=== PATIENT | male | born 1975 | race Caucasian/White ===

== ENCOUNTER 2017-03-06 14:31 | Emergency (ER) | payer BC ==
[~2017-03-06] VITALS: Ht 188 cm; Wt 90.9 kg
[2017-03-06 14:59] VITALS: BP 145/96; PULSE 98; RESP 18; TEMP 98.4; O2SAT 99
--- NOTE | 2017-03-06 15:46 | RADRPT ---
EXAM DATE/TIME: 03/06/2017 15:27 [place] COMPARISON: No previous studies available for comparison. INDICATIONS : Chest pain. MEDICAL HISTORY : A-fib SURGICAL HISTORY : None. ENCOUNTER: Initial ACUITY: 3 days PAIN SCORE: 10/10 LOCATION: Bilateral chest FINDINGS: PA and lateral views of the chest demonstrate the lungs to be symmetrically aerated without evidence of mass, infiltrate or effusion. The cardiomediastinal contours are unremarkable. Osseous structure s are intact. CONCLUSION: No acute disease. Lamin Valenzuela MD on March 06, 2017 at 15:43 Board Certified Radiologist. This report was verified electronically.
[2017-03-06 16:09] LABS: AUTOMATED NEUTROPHIL # 2.9 TH/MM3 (1.8-7.7); BASOPHIL % 0.6 % (0.0-2.0); EOSINOPHIL # 0.2 TH/MM3 (0-0.4); EOSINOPHIL % 4.3 % (0.0-4.0); HEMATOCRIT 46.6 % (39.0-51.0); HEMOGLOBIN 15.9 GM/DL (13.0-17.0); LYMPH % 32.3 % (9.0-44.0); LYMPHOCYTE # 1.8 TH/MM3 (1.0-4.8); MEAN CELL VOLUME 100.1 FL (80.0-100.0); MEAN CORPUSCULAR HEMOGLOBIN 34.1 PG (27.0-34.0); MEAN CORPUSCULAR HGB CONC 34.1 % (32.0-36.0); MEAN PLATELET VOLUME 7.4 FL (7.0-11.0); MONOCYTE # 0.5 TH/MM3 (0-0.9); NEUT % 52.8 % (16.0-70.0); PLATELET COUNT 277 TH/MM3 (150-450); RED BLOOD COUNT 4.66 MIL/MM3 (4.50-5.90); RED CELL DISTRIBUTION WIDTH 13.3 % (11.6-17.2); WHITE BLOOD COUNT 5.5 TH/MM3 (4.0-11.0)
[2017-03-06 16:20] LABS: BICARBONATE 30.3 MEQ/L (21.0-32.0); BLOOD UREA NITROGEN 7 MG/DL (7-18); CALCIUM 9.1 MG/DL (8.5-10.1); CHLORIDE 102 MEQ/L (98-107); CREATININE 0.85 MG/DL (0.60-1.30); GLOMERULAR FILTRATION RATE 99 ML/MIN (>89); GLUCOSE,RANDOM 99 MG/DL (74-106); MAGNESIUM 2.3 MG/DL (1.5-2.5); SODIUM (NA) 139 MEQ/L (136-145)
[2017-03-06 16:24] LABS: TROPONIN I LESS THAN 0.02 NG/ML (0.02-0.05)
[2017-03-06 17:00] VITALS: BP 157/81; PULSE 89; RESP 16; TEMP 97.8; O2SAT 96
[2017-03-06] MEDS ORDERED: LURA40 PO (17:00)
[2017-03-06] MEDS ORDERED: BUPR150CR PO (17:00)
[2017-03-06] MEDS ORDERED: ZIPR1CAP10 PO (17:05)
--- NOTE | 2017-03-06 17:35 | PD ---
HPI Chief Complaint: Chest Pain Time Seen by Provider: 17:00 Travel History International Travel<30 days: No Contact w/Intl Traveler<30days: No Traveled to known affect area: No History of Present Illness HPI 41-year-old male presents to the emergency room for evaluation of left-sided chest pain that started 2 days ago. Patient states he had a small, short-lived episode 3 days ago that resolved spontaneously. States yesterday his pain was constant throughout the day. He took an Advil which relieved the symptoms. Upon waking today he had no pain but as the day progressed, the pain worsened. He has no radiation, nausea, vomiting, or shortness of breath. Pain is worse when he pushes on his chest, with certain movements, or with sitting down. Improves with standing up. He does state that he recently worked out for the first time in 3 weeks and is unsure if this out on his pain. Patient denies any chronic medical conditions other than depression. Denies any abdominal pain. No upper respiratory symptoms. PFSH Past Medical History Atrial Fibrillation: Yes Bipolar Disorder: Yes Anxiety: Yes Heart Rhythm Problems: Yes Cardiovascular Problems: Yes Diminished Hearing: No Psychiatric: Yes Tetanus Vaccination: > 5 Years Influenza Vaccination: No Past Surgical History Surgical History: No Previous Surgery Social History Alcohol Use: Yes (wine ocassionally) Tobacco Use: No Substance Use: No Allergies-Medications (Allergen,Severity, Reaction): Coded Allergies: No Known Allergies (Verified Allergy, Unknown, 03/06/17) Reported Meds & Prescriptions Reported Meds & Active Scripts Active Reported Ziprasidone 60 Mg Cap 60 Mg PO BID Review of Systems Except as stated in HPI: all other systems reviewed are Neg Physical Exam Narrative GENERAL: Well-nourished, well-developed male in no acute distress. Afebrile. Ambulatory. SKIN: Focused skin assessment warm/dry. HEAD: Normocephalic. EYES: No scleral icterus. No injection or drainage. NECK: Supple, trachea midline. No JVD or lymphadenopathy. CARDIOVASCULAR: Regular rate and rhythm without murmurs, gallops, or rubs. RESPIRATORY: Breath sounds equal bilaterally. No accessory muscle use. GASTROINTESTINAL: Abdomen soft, non-tender, nondistended. Data Data Last Documented VS Vital Signs Date Time Temp Pulse Resp B/P (MAP) Pulse Ox O2 Delivery O2 Flow Rate FiO2 03/06/17 18:33 97.9 72 15 132/67 (88) 99 Room Air Orders Orders Electrocardiogram (03/06/17 14:53) Basic Metabolic Panel (Bmp) (03/06/17 14:53) Ckmb (Isoenzyme) Profile (03/06/17 14:53) Complete Blood Count With Diff (03/06/17 14:53) Magnesium (Mg) (03/06/17 14:53) Prothrombin Time / Inr (Pt) (03/06/17 14:53) Act Partial Throm Time (Ptt) (03/06/17 14:53) Troponin I (03/06/17 14:53) Chest, Pa & Lat (03/06/17 14:53) CKMB (03/06/17 15:58) CKMB% (03/06/17 15:58) Lipase (03/06/17 17:26) Labs Laboratory Tests Test 03/06/17 15:58 03/06/17 17:00 White Blood Count 5.5 TH/MM3 Red Blood Count 4.66 MIL/MM3 Hemoglobin 15.9 GM/DL Hematocrit 46.6 % Mean Corpuscular Volume 100.1 FL Mean Corpuscular Hemoglobin 34.1 PG Mean Corpuscular Hemoglobin Concent 34.1 % Red Cell Distribution Width 13.3 % Platelet Count 277 TH/MM3 Mean Platelet Volume 7.4 FL Neutrophils (%) (Auto) 52.8 % Lymphocytes (%) (Auto) 32.3 % Monocytes (%) (Auto) 10.0 % Eosinophils (%) (Auto) 4.3 % Basophils (%) (Auto) 0.6 % Neutrophils # (Auto) 2.9 TH/MM3 Lymphocytes # (Auto) 1.8 TH/MM3 Monocytes # (Auto) 0.5 TH/MM3 Eosinophils # (Auto) 0.2 TH/MM3 Basophils # (Auto) 0.0 TH/MM3 CBC Comment DIFF FINAL Differential Comment Blood Urea Nitrogen 7 MG/DL Creatinine 0.85 MG/DL Random Glucose 99 MG/DL Calcium Level 9.1 MG/DL Magnesium Level 2.3 MG/DL Sodium Level 139 MEQ/L Potassium Level 3.9 MEQ/L Chloride Level 102 MEQ/L Carbon Dioxide Level 30.3 MEQ/L Anion Gap 7 MEQ/L Estimat Glomerular Filtration Rate 99 ML/MIN Total Creatine Kinase 283 U/L Creatine Kinase MB 0.7 NG/ML Troponin I LESS THAN 0.02 NG/ML Lipase 119 U/L Prothrombin Time 10.0 SEC Prothromb Time International Ratio 1.0 RATIO Activated Partial Thromboplast Time 27.5 SEC MDM Medical Decision Making Medical Screen Exam Complete: Yes Emergency Medical Condition: Yes Medical Record Reviewed: Yes Differential Diagnosis OH, CAD, pancreatitis, CHF, pneumonia Narrative Course 41-year-old otherwise healthy male presents to the emergency room for evaluation of left-sided chest pain for the past 2 days. Patient had an episode of pain 3 days ago that was short-lived. He associates it with working out recently. Pain is described as pressure without radiation. It is worsened with certain movement and improves with standing up and Advil. Vital signs stable. Physical exam is reassuring. No increased work of breathing. He has tenderness to palpation over the left anterior chest. IV access established and basic labs obtained. EKG shows sinus rhythm with a rate of 81 bpm. There is a right bundle branch block. Signed off by my attending physician. CBC and CMP are unremarkable. Troponin is less than 0.02. Lipase is unremarkable. My attending physician recommends admission to the chest pain center. Results discussed with patient with recommendation to stay overnight for serial enzymes and EKGs. Patient would not like to stay. States he would like to go to work tomorrow. He was given risks. Patient will be leaving AGAINST MEDICAL ADVICE, per my attending's request. AMA: The risks of leaving against medical advice without further evaluation treatment were discussed with the patient. These risks include cardiac dysfunction, cardiac dysrhythmia, possible heart attack, possible stroke or . The patient indicated understanding of these risks and appeared to have the capacity to make this decision. Diagnosis Primary Impression: Chest pain Qualified Codes: R07.9 - Chest pain, unspecified Referrals: Primary Care Physician Disposition: 07 AGAINST MEDICAL ADVICE Condition: Stable Natividad Ambrose Mar 06, 2017 17:35
[2017-03-06 18:33] VITALS: BP 132/67; PULSE 72; RESP 15; TEMP 97.9; O2SAT 99
--- NOTE | 2017-03-07 09:31 | EKG ---
Date Performed: 03/06/2017 Time Performed: 15:55:08 PTAGE: 41 years EKG: Sinus rhythm INDETERMINATE AXIS RIGHT BUNDLE BRANCH BLOCK ABNORMAL ECG NO PREVIOUS TRACING DOCTOR: Moo Killian Interpretating Date/Time 03/07/2017 09:28:48
== END 2017-03-06 19:07 | disposition left against medical advice (07) ==
LOC: NEPC 14:31
DX: R07.9 Chest pain, unspecified (principal); I45.10 Unspecified right bundle-branch block; Z79.899 Other long term (current) drug therapy
CPT/HCPCS: 71046; 80048; 82550; 82552; 83690; 83735; 84484; 85025; 85610; 85730; 93005; 99285